=== PATIENT | female | born 1935 | race Caucasian/White ===

== ENCOUNTER 2016-09-11 12:43 | Inpatient (IN) | payer MEDICARE ==
[2016-09-11 13:20] LABS: ABSOLUTE NEUTROPHIL COUNT 5.7 K/mm3 (1.8-7.7); BASO % 0.3 % (0.2-1.0); EOS # 0.1 (0.0-0.5); EOS % 1.1 % (0.9-2.9); HEMATOCRIT 33.4 % (37.0-47.0); HEMOGLOBIN 9.8 gm/l (12.0-16.0); IMM NEUT% 0.5 % (0-1); LYMPH % 12.9 % (15-45); MEAN CELL VOLUME 87.2 fl (81.0-99.0); MEAN CORPUSCULAR HEMOGLOBIN 25.6 pg (27.0-31.0); MEAN CORPUSCULAR HGB CONC 29.3 g/dl (33.0-37.0); MEAN PLATELET VOLUME 10.3 fl (7.4-10.4); MONO # 0.6 (0.0-0.8); MONO % 8.2 % (4-12); PLATELET COUNT 311 K/mm3 (130-400); RED CELL DISTRIBUTION WIDTH 15.7 % (11.5-14.5)
[2016-09-11 13:31] LABS: ALB/GLOB RATIO 1.1 (>1.0); ALBUMIN 3.6 gm/dL (3.5-5.7); CALCIUM 9.1 mg/dL (8.6-10.3)
[2016-09-11 13:32] LABS: SPECIFIC GRAVITY 1.025 (1.001-1.030); URINE BILIRUBIN NEGATIVE (NEGATIVE); URINE BLOOD NEGATIVE (NEGATIVE); URINE GLUCOSE (UA) NEGATIVE (NEGATIVE); URINE LEUKOCYTE ESTERASE 1+ (NEGATIVE); URINE NITRITE POSITIVE (NEGATIVE); URINE PROTEIN TRACE (NEGATIVE); URINE UROBILINOGEN NORMAL (0-1 mg/dl)
[2016-09-11 13:35] LABS: URINE APPEARANCE HAZY; URINE COLOR YELLOW
[2016-09-11] MEDS ORDERED: SODIUM CHLORIDE 0.9% 1,000 ML ONE (13:53)
[2016-09-11] MEDS ORDERED: ONDANSETRON 4 MG/2ML 2 ML VIAL ONE (13:53)
[2016-09-11 13:57] LABS: URINE WBC 50-60 /hpf
[2016-09-11 13:58] LABS: URINE BACTERIA 4+
[2016-09-11] MEDS ORDERED: CEFTRIAXONE 1 GRAM DUPLEX 50 ML IV ONE (14:14)
--- NOTE | 2016-09-11 14:58 | RAD ---
CHEST-AP BEDSIDE HISTORY: Weakness. COMPARISONS: 02/28/2015. FINDINGS: A single view of the chest was performed demonstrating normal appearing soft tissue and bony structures. The heart size is enlarged. There appears to be a large hiatal hernia. Central vascular prominence is observed, mildly increased when compared to the prior exam. No gross consolidation, effusion or pneumothorax is visualized. The hilar and mediastinal structures are intact. IMPRESSION: 1. Cardiomegaly with central vascular congestion, mildly increased from its appearance on prior examination. 2. A large hiatal hernia.
[2016-09-11] MEDS ORDERED: POTASSIUM CHLORIDE 20 MEQ TAB.PRT.SR PO ONE (17:20)
[2016-09-11 17:28] VITALS: BMI 46.3
[2016-09-11] MEDS ORDERED: MENTHOL/CETYLPYRD 1 EACH LOZENGE PO PRN (17:38)
[2016-09-11] MEDS ORDERED: BISACODYL 10 MG SUP PR PRN (17:38)
[2016-09-11] MEDS ORDERED: BLISTEX LIPSTICK 1 EACH TP PRN (17:38)
[2016-09-11] MEDS ORDERED: SODIUM CHLORIDE 0.9% 100 ML IV PRN (17:38)
[2016-09-11] MEDS ORDERED: ACETAMINOPHEN 325 MG TABLET PO PRN (17:38)
[2016-09-11] MEDS ORDERED: BISACODYL 5 MG TABLET.EC PO PRN (17:38)
[2016-09-11] MEDS ORDERED: MAGNESIUM HYDROXIDE 30 ML UDCUP PO PRN (17:38)
[2016-09-11] MEDS ORDERED: CEFTRIAXONE SODIUM 2 G in SODIUM CHLORIDE 0.9% 100 ML IV SCH (17:45)
[2016-09-11] MEDS ORDERED: PUMP TUBING ONE (18:10)
[2016-09-11] MEDS ORDERED: ONDANSETRON 4 MG/2ML 2 ML VIAL IV PRN (18:15)
[2016-09-11] MEDS: SODIUM CHLORIDE 0.9% 1,000 ML IV SCH (18:21)
[2016-09-11] MEDS: PANTOPRAZOLE 40 MG TABLET DR PO SCH (18:25)
[2016-09-11] MEDS ORDERED: FUROSEMIDE 40 MG/4 ML VIAL IV ONE (18:35)
--- NOTE | 2016-09-11 18:41 | HP ---
JESÚS PAZ : 1935 DATE OF ADMISSION: September 11, 2016 CHIEF COMPLAINT: Weakness. HISTORY OF PRESENT ILLNESS: The patient is a 81-year-old female with progressive weakness. She usually uses a cane to help with mobilization but for the past two days she has been bedbound. Her brought her in today because he could no longer take care of her. Per the patient, she woke this morning feeling poorly, sickly. She had nausea and weakness. She denies any cough, chest pain, abdominal pain, vomiting or urinary discomfort. She keeps reiterating she felt poorly. She will converse but she will not open her eyes and maintain eye contact. also reiterated that this weakness has been progressive over the past month but they have not seen their physician. Her past medical history includes chronic anemia secondary to multiple gastrointestinal bleeds. She is being treated by Dr. Green, hematology/oncology, and she gets monthly iron transfusions for this. Her last transfusion was a week ago. She says her weakness did not improve after this transfusion and has progressively worsened since then. REVIEW OF SYSTEMS: GENERAL: No fevers or chills. Weakness, feeling poorly. HEENT: No congestion or throat pain. CARDIOVASCULAR: No chest pain or pressure. RESPIRATORY: No difficulty in breathing, shortness of breath or cough. ABDOMEN: Nausea, no vomiting, diarrhea, abdominal pain. GENITOURINARY: No burning or difficulty with urination. She does have incontinence. NEUROLOGIC: No numbness, tingling. She did have lightheadedness. No headaches. MUSCULOSKELETAL: No muscles aches, pains. Weakness. PAST MEDICAL HISTORY: Includes: 1. Anemia from multiple gastrointestinal bleeds requiring transfusions and IV monthly iron infusions. 2. Obstructive sleep apnea on CPAP. 3. Essential tremor. 4. Diastolic heart failure with an echocardiogram showing ejection fraction of around 70%. 5. Diverticulosis. 6. Hyperlipidemia. 7. Hypothyroidism. 8. Morbid obesity. 9. Hypertension. 10. Atrial fibrillation. 11. Seasonal allergies. 12. Chronic major depression. 13. Conductive hearing loss. 14. Dependent edema. 15. Gastritis. 16. Gluten enteropathy. 17. Hiatal hernia. 18. Hoarding disorder. 19. Primary pulmonary hypertension. MEDICATIONS: Include: 1. Lasix. 2. Restasis. 3. Sertraline. 4. Protonix. 5. Multivitamin. 6. Levothyroxine. 7. Carafate. 8. Oxybutynin. 9. Flonase. 10. Iron sucrose monthly infusions. 11. Diltiazem. ALLERGIES: 1. CODEINE. 2. GLUTEN. 3. TAPE. PAST SURGICAL HISTORY: 1. Multiple colonoscopies and esophagogastroduodenoscopies. 2. Cholecystectomy. 3. Total abdominal hysterectomy. 4. Bladder suspension. 5. Breast biopsy. 6. Elbow surgery. 7. Bilateral total hip arthroplasties. 8. Thyroid radiation. SOCIAL HISTORY: She lives with her . Denies any alcohol, tobacco or drug use. It is noted from EMS that it took six individuals to get her out of the home due to the hoarding activity. FAMILY HISTORY: Mother with colon cancer. PHYSICAL EXAM: VITAL SIGNS: Temperature of 97.6, heart rate of 70, blood pressure 136/54, she is saturating 99% on 3 liters. She denies oxygen use at home. GENERAL: She is alert and oriented. Will converse with you if directly spoken to. Will not open her eyes or look at you. She is not in acute distress. HEENT: Normocephalic, atraumatic. No tenderness to palpation. Mucous membranes moist. Her pupils are equal, round and reactive. Extraocular muscles are intact. There is no scleral icterus or conjunctival injection. NECK: Supple. Trachea midline. CARDIOVASCULAR: Regular, positive S1, S2. She has palpable pulses bilaterally posterior tibial and radially. RESPIRATORY: Clear to auscultation bilaterally. No rhonchi or wheezing. ABDOMEN: Soft, nontender, no rebound, no guarding. MUSCULOSKELETAL: She is moving extremities without difficulty. They are nontender. NEUROLOGIC: She is alert and oriented. PSYCHIATRIC: Flat affect. Does not maintain eye contact. LABORATORIES: Patient's white blood count is 7.5, hemoglobin 9.8, hematocrit 33.4 with a platelet count of 311. Sodium 143, potassium 3.1, chloride 107, carbon dioxide 26, BUN 9, creatinine 0.7, glucose of 107. Urinalysis was obtained. It was yellow and hazy with a trace protein, negative glucose, trace ketones, positive nitrites, 1+ leukocyte esterase, 1 to 2 urine red blood cells, 50 to 60 urine white blood cells, 1 to 3 epithelial cells, and 4+ urine bacteria. DIAGNOSTIC IMAGING: Chest x-ray was obtained and interpreted as cardiomegaly with central vascular congestion mildly increased, large hiatal hernia. ASSESSMENT: A 81-year-old female with progressive weakness and nausea this morning with chronic iron deficiency anemia and found to have a urinary tract infection. PLAN: 1. Urinary tract infection. She received a dose of Rocephin and a liter of IV fluids in the emergency department. We will continue Rocephin and change antibiotics per urine culture results. There is no evidence of sepsis right now without an elevated white count and her vitals are stable. 2. Hypokalemia. We will supplement, replace and monitor. We will check a magnesium. 3. Chronic iron deficiency anemia. Hemoglobin is currently 9.8 which is low. We will monitor and treat as needed. 4. Obstructive sleep apnea. We will have her bring in her CPAP. 5. Allergic rhinitis. Continue Flonase. 6. Atrial fibrillation. We will monitor and continue her home medications. 7. Chronic major depression with hoarding behavior. I believe her depression is poorly treated as noted in recent primary care notes from May. Her medications have been decreased and her current affect on exam is flat without eye contact. She will need close followup. 8. Gluten enteropathy. We will provide a gluten-free diet. 9. Hyperlipidemia. We will continue her home medications and monitor. 10. Hypertension. We will continue her home medications and monitor. 11. Hypothyroidism. We will continue her home medications and monitor. 12. For her chronic diastolic heart failure, she does have some vascular congestion on exam. We will monitor for fluid overload and increase diuresis if necessary. 13. Patient is a FULL CODE. Cc: Edvin Waldron M.D.
[2016-09-11] MEDS ORDERED: FUROSEMIDE 40 MG/4 ML VIAL ONE (21:13)
[2016-09-11] MEDS: DOCUSATE SODIUM 100 MG CAPSULE PO SCH (21:19)
[2016-09-12 05:52] LABS: ABSOLUTE NEUTROPHIL COUNT 4.3 K/mm3 (1.8-7.7); BASO % 0.5 % (0.2-1.0); EOS % 0.2 % (0.9-2.9); HEMATOCRIT 31.6 % (37.0-47.0); HEMOGLOBIN 9.3 gm/l (12.0-16.0); IMM NEUT% 0.3 % (0-1); LYMPH % 17.4 % (15-45); MEAN CELL VOLUME 87.3 fl (81.0-99.0); MEAN CORPUSCULAR HEMOGLOBIN 25.7 pg (27.0-31.0); MEAN CORPUSCULAR HGB CONC 29.4 g/dl (33.0-37.0); MEAN PLATELET VOLUME 9.9 fl (7.4-10.4); MONO # 0.6 (0.0-0.8); MONO % 9.6 % (4-12); PLATELET COUNT 331 K/mm3 (130-400); RED CELL DISTRIBUTION WIDTH 15.7 % (11.5-14.5)
[2016-09-12 06:24] LABS: CALCIUM 10.2 mg/dL (8.6-10.3)
[2016-09-12] MEDS ORDERED: POTASSIUM CHLORIDE 20 MEQ TAB.PRT.SR PO ONE (07:18)
--- NOTE | 2016-09-12 07:33 | PDOC43 ---
- Subjective Chief Complaint: weakness Patient awake with CPAP. She is more conversant and feels improved from yesterday. She is not as weak feeling today Subjective: Reports Pain Tolerable, Reports Tolerating Diet Well, Reports Urinating Without Difficulty, Denies Shortness of Breath, Denies Cough, Denies Chest Pain, Denies Abdominal Pain, Denies Nausea, Denies Vomiting - Objective Vital Signs Temperature 97.7 F 09/12/16 01:35 Pulse Rate 61 09/12/16 01:35 Respiratory Rate 14 09/12/16 05:35 Blood Pressure 127/65 09/12/16 01:35 O2 Saturation by Pulse Oximetry 94 09/12/16 01:35 Oxygen Delivery Method CPAP Oxygen Flow Rate 2 Intake and Output 09/10/16 09/11/16 09/12/16 23:59 23:59 23:59 Intake Total 300 Output Total 1352 Balance -1052 General: Alert, Oriented x3, Cooperative, Other (morbidly obese), No Acute Distress HEENT: Atraumatic, PERRLA, EOMI, Mucous membr. moist/pink Lungs: Clear to Auscultation Bilaterally, Normal Air Movement Cardiovascular: Regular Rate and Rhythm, Normal S1, Normal S2, Other (distant) Abdomen: Soft, Non-Distended, No Rigid, No Tenderness, No Rebounding Extremities: No Cyanosis, No Edema, No Tenderness Peripheral Pulses: Posterior Tibialis (R): 2+, Dorsalis Pedis (L): 2+ Neurological: Normal Speech Psych/Mental Status: Normal Mood Laboratory 09/12/16 05:00 09/12/16 05:00 09/12/16 05:00 RBC 3.62 L MCH 25.7 L MCHC 29.4 L RDW 15.7 H Current Medications: Current meds reviewed in EMR. - Problems: Assessment/Plan (1) UTI (urinary tract infection), bacterial Status: AcuteAssessment/Plan: contributing to weakness (2) Atrial fibrillation Qualifiers: Atrial fibrillation type: paroxysmal Qualifier Code: (I48.0) Paroxysmal atrial fibrillation Status: ChronicAssessment/Plan: stable, not on blood thinners due to recurrent GIB and chronic anemia (3) Chronic diastolic CHF (congestive heart failure) Status: ChronicAssessment/Plan: stable, monitor for fluid overload. She had a slight elevation in BNP upon presentation, received extra dose of lasix. (4) Hypothyroid Qualifiers: Hypothyroidism type: acquired Qualifier Code: (E03.9) Hypothyroidism, unspecified Status: ChronicAssessment/Plan: stable (5) Hypokalemia Status: AcuteAssessment/Plan: may contribute to weakness, replace. She is on diuretics contributing to low levels (6) PATRICIA on CPAP Status: ChronicAssessment/Plan: stable (7) Weakness Status: AcuteAssessment/Plan: multifactorial including chronic disease, poor functional mobility at baseline, anemia and acute infection. Work with PT, OT (8) Obesity, Class III, BMI 40-49.9 (morbid obesity) Status: ChronicAssessment/Plan: complicates medical care (9) Anemia Qualifiers: Anemia type: iron deficiency Iron deficiency anemia type: chronic blood loss Qualifier Code: (D50.0) Iron deficiency anemia secondary to blood loss (chronic) Status: AcuteAssessment/Plan: chronic iron deficiency anemia, receives monthly IV iron infusions. Hgb stable , contributes to weakness
[2016-09-12] MEDS: DILTIAZEM HCL CD 240 MG CAPSULE PO SCH (08:03)
[2016-09-12] MEDS: LEVOTHYROXINE SODIUM 150 MCG TABLET PO SCH (08:03)
[2016-09-12] MEDS: FUROSEMIDE 20 MG TABLET PO SCH (08:04)
[2016-09-12] MEDS: DOCUSATE SODIUM 100 MG CAPSULE PO SCH ×2 (08:04→20:24)
[2016-09-12] MEDS: SERTRALINE HCL 50 MG TABLET PO SCH (08:04)
[2016-09-12] MEDS: OXYBUTYNIN CHLORIDE 5 MG TAB.XL PO SCH (08:06)
--- NOTE | 2016-09-12 10:51 | CT ---
HEAD W/O CON COMPARISON: None HISTORY: Left side drift, arm/leg, tingling in left arm. Cerebrovascular accident. TECHNIQUE: Using a [employer] Aquilion [address] scanner, images were obtained through the head. An automated dose reduction technique was used to minimize patient radiation dose. DOSE INFORMATION: CTDIvol (mGy): 24.10 DLP(mGycm): 442.50 FINDINGS: Mass: None Intracranial Hemorrhage: None Acute Infarction: None Cerebral hemispheres: No change. Mild volume loss. Basal ganglia: Normal Thalami: Normal Brainstem: Normal Cerebellum: Normal Ventricles: Normal Basilar cisterns: Normal Corpus callosum: Normal Pituitary fossa: Normal Middle ears and mastoid air cells: Normal Orbits and sinuses: No acute finding. Bilateral lens replacements. Skull and scalp: Normal Dural sinuses and vessels: Normal IMPRESSION: 1. No acute finding. No intracranial hemorrhage or edema. 2. No change in mild cerebral atrophy. The results were discussed with Matt Sung M.D. 09/12/2016 at 10:47
[2016-09-12 11:10] LABS: ABSOLUTE NEUTROPHIL COUNT 6.9 K/mm3 (1.8-7.7); BASO % 0.3 % (0.2-1.0); EOS # 0.1 (0.0-0.5); EOS % 0.7 % (0.9-2.9); HEMATOCRIT 34.1 % (37.0-47.0); IMM NEUT% 0.3 % (0-1); LYMPH # 1.2 (1.0-4.8); LYMPH % 13.9 % (15-45); MEAN CELL VOLUME 87.7 fl (81.0-99.0); MEAN CORPUSCULAR HEMOGLOBIN 25.7 pg (27.0-31.0); MEAN CORPUSCULAR HGB CONC 29.3 g/dl (33.0-37.0); MEAN PLATELET VOLUME 10.1 fl (7.4-10.4); MONO # 0.7 (0.0-0.8); MONO % 8.2 % (4-12); NEUT % 76.6 % (43-75); PLATELET COUNT 356 K/mm3 (130-400); RED CELL DISTRIBUTION WIDTH 15.9 % (11.5-14.5)
[2016-09-12 11:16] LABS: INR 1.09; PARTIAL THROMBOPLASTIN TIME 24.2 SECONDS (24.5-33.0); PROTHROMBIN TIME 11.6 SECONDS (9.3-11.4)
[2016-09-12 11:18] LABS: ALB/GLOB RATIO 1.1 (>1.0); ALBUMIN 3.5 gm/dL (3.5-5.7); CALCIUM 9.2 mg/dL (8.6-10.3)
[2016-09-12] MEDS ORDERED: ASPIRIN (UNCOATED) 325 MG TABLET PO ONE (12:43)
--- NOTE | 2016-09-12 12:56 | PDOC36 ---
Provider Note Subject: stroke team activated this am at approx 10:30 am due to some mild left sided weakness noted by nursing staff. Note: by the time of stroke team assessment, patient's symptoms had improved. CT of head negative for evidence of stroke. some transient hypoxia noted today, down to 69% but likely due to previously diagnosed sleep apnea and improved with oxygen. Repeat CXR pending, will resume CPAP and consider increased Lasix if CXR shows evidence of fluid overload. Will start daily aspirin.
--- NOTE | 2016-09-12 13:02 | RAD ---
CHEST - 1 VIEW COMPARISON: Portable chest x-ray, 09/11/2016 HISTORY: Worsening hypoxia. FINDINGS: Views: Frontal chest. Lungs: Clear. Heart and vessels: No change. Cardiomegaly. The pulmonary vessels are not engorged. Trachea and bronchi: Normal Mediastinum and stu: No change. Large hiatal hernia. Costophrenic sulci: No change in left, with moderate pleural thickening. Chest wall and bones: Normal Upper abdomen: Normal. IMPRESSION: 1. No acute finding. 2. Pulmonary vessels are not enlarged. 3. No change in large hiatal hernia, cardiomegaly, and lateral left pleural thickening.
--- NOTE | 2016-09-12 14:03 | US ---
DUPLEX SCAN CAROTID BILATERAL COMPARISON: None. HISTORY: Transient ischemic attack symptoms. Frequent headaches and weakness in the left hand. Technique: Grayscale and color Doppler ultrasound examination of the carotid and vertebral artery systems bilaterally. Maximum peak systolic velocity (PSV) / end diastolic velocity (EDV) measurements were obtained. Carotid duplex criteria: Internal carotid artery stenosis is determined using the [place] Symptomatic Carotid Endarterectomy Trial method. FINDINGS: Right Carotid System Velocities (cm/s) Right Common Carotid Artery Proximal/Mid: 115/19 Right Common Carotid Artery Distal: 91/16 Right Bulb: 53/12 Right Internal Carotid Artery Proximal: 69/19 Right Internal Carotid Artery Mid: 71/19 Right Internal Carotid Artery Distal: 97/24 Right External Carotid Artery (RECA): 97 Right Vertebral Artery: 43 cm/s Anterograde with normal waveform Right ICA/CCA: 1.06 Right grayscale and waveform data: Minimal intimal thickening mid to distal common carotid. Minimal plaque in the bulb and proximal external carotid artery. No visible stenosis. Left Carotid System Velocities (cm/s) Left Common Carotid Artery Proximal/Mid: 100/15 Left Common Carotid Artery Distal: 77/15 Left Bulb: 68/11 Left Internal Carotid Artery Proximal: 58/14 Left Internal Carotid Artery Mid: 76/18 Left Internal Carotid Artery Distal: 91/26 Left External Carotid Artery (LECA): 80 Left Vertebral Artery: 57 cm/s Anterograde with normal waveform Left ICA/CCA: 1.17 Left grayscale and waveform data: Minimal intimal thickening of the mid to distal common carotid artery with mild plaque in the bulb and proximal external carotid artery Other findings: None. IMPRESSION: Society of Radiologists in Ultrasound (SRU) consensus statement (Radiology 2003; 229:340-346. DOI 10.1148/radiol.6937171587) was used to estimate internal carotid artery stenosis. Right internal carotid artery: Normal (no stenosis). Left internal carotid artery: Normal (no stenosis). The vertebral arteries: Antegrade flow with normal waveforms bilaterally.
[2016-09-12] MEDS: SODIUM CHLORIDE 0.9% 1,000 ML IV SCH (14:11)
[2016-09-12] MEDS: CEFTRIAXONE 1 GRAM DUPLEX 1 G in Premix (D5W) 50 ml 1 EACH IV SCH (14:51)
[2016-09-12] MEDS: PANTOPRAZOLE 40 MG TABLET DR PO SCH (20:24)
[2016-09-13 06:46] LABS: HEMATOCRIT 33.2 % (37.0-47.0); MEAN CELL VOLUME 86.5 fl (81.0-99.0); MEAN CORPUSCULAR HGB CONC 30.1 g/dl (33.0-37.0); RED CELL DISTRIBUTION WIDTH 16.1 % (11.5-14.5)
[2016-09-13 06:59] LABS: CALCIUM 9.1 mg/dL (8.6-10.3)
[2016-09-13] MEDS: LEVOTHYROXINE SODIUM 150 MCG TABLET PO SCH (07:11)
[2016-09-13] MEDS: DILTIAZEM HCL CD 240 MG CAPSULE PO SCH (08:46)
[2016-09-13] MEDS: SERTRALINE HCL 50 MG TABLET PO SCH (08:47)
[2016-09-13] MEDS: ASPIRIN (ENTERIC COATED) 325 MG TABLET.EC PO SCH (08:47)
[2016-09-13] MEDS: DOCUSATE SODIUM 100 MG CAPSULE PO SCH ×2 (08:47→21:28)
[2016-09-13] MEDS: OXYBUTYNIN CHLORIDE 5 MG TAB.XL PO SCH (08:47)
[2016-09-13] MEDS: FUROSEMIDE 20 MG TABLET PO SCH (08:47)
--- NOTE | 2016-09-13 09:51 | PDOC43 ---
- Subjective Chief Complaint: weakness Patient reports some nausea. No diarrhea, some constipation. Did get to stand with assist today, improved from yesterday, but not to baseline. Variable history elicited between me and PT, regarding numbness being localized (to ulnar distribution with me) to bilat hands for PT. She reports some difficulty using her phone. Speech good, but PT notes processing time seems delayed. reports pt doing better, but still not to her baseline. - Objective Vital Signs Temperature 97.9 F 09/13/16 07:18 Pulse Rate 57 09/13/16 07:18 Respiratory Rate 18 09/13/16 07:18 Blood Pressure 108/50 09/13/16 07:18 O2 Saturation by Pulse Oximetry 92 09/13/16 07:18 Oxygen Delivery Method Room Air Oxygen Flow Rate 0 Vital Signs Last 12 Hours Temp Pulse Resp BP Pulse Ox 09/13/16 07:18 97.9 F 57 18 108/50 92 09/13/16 02:00 16 09/13/16 01:30 98.0 F 51 16 90/43 90 Intake and Output 09/11/16 09/12/16 09/13/16 23:59 23:59 23:59 Intake Total 770 300 Output Total 570 120 Balance 200 180 Intake & Output 09/12/16 09/13/16 09/13/16 23:59 07:59 15:59 Intake Total 770 300 Output Total 570 120 Balance 200 180 Intake: PO Intake 770 300 Output: Void 570 Diaper Void (1gm=1 ml) 120 Other: Number of Voids 1 Unmeasured Stool Amount Large Smear Number of Stools 1 1 General: Alert (but sl slow to answer, sl sleepy.), Cooperative, No Acute Distress Lungs: Clear to Auscultation Bilaterally Cardiovascular: Irregular (rate controlled) Abdomen: Soft, Other (large abdomen, sl metallic bowel sounds noted. No R/G) Extremities: No Edema Skin: Normal Color Neurological: Other (speech sl slower, but generally answers ok.) Laboratory 09/13/16 06:00 09/13/16 06:00 09/13/16 06:00 RBC 3.84 L MCH 26.0 L MCHC 30.1 L RDW 16.1 H Carotid: no significant stenosis, antegrade flow. CXR - no acute finding CT -minor cerebral atrophy, no acute. Current Medications: Current meds reviewed in EMR. Active Medications Acetaminophen (Tylenol) 650 mg PO Q6H PRN PRN Reason: Pain or Temperature > 100.5 F Last Admin: 09/13/16 08:50 Dose: 650 mg Aspirin (Ecotrin) 325 mg PO DAILY [facility] Last Admin: 09/13/16 08:47 Dose: 325 mg Benzocaine/Menthol (Cepacol) 1 each PO PRN PRN PRN Reason: Sore Throat Bisacodyl (Dulcolax) [address] DAILY PRN PRN Reason: Constipation Bisacodyl (Dulcolax) 5 mg PO DAILY PRN PRN Reason: Constipation Diltiazem HCl (Cardizem Cd) 240 mg PO DAILY [facility] Last Admin: 09/13/16 08:46 Dose: 240 mg Docusate Sodium (Colace) 100 mg PO BID [facility] Last Admin: 09/13/16 08:47 Dose: 100 mg Furosemide (Lasix) 20 mg PO QAM [facility] Last Admin: 09/13/16 08:47 Dose: 20 mg Sodium Chloride (Sodium Chloride 0.9%) 100 mls @ 25 mls/hr IV PRN PRN PRN Reason: Flush Ceftriaxone Sodium/Dextrose 1 (g/ Premix (D5W) 50 ml) 50 mls @ 100 mls/hr IV Q24H [facility] Last Admin: 09/12/16 14:51 Dose: 100 mls/hr Levothyroxine Sodium (Levothroid) 150 mcg PO QAMAC [facility] Last Admin: 09/13/16 07:11 Dose: 150 mcg Magnesium Hydroxide (Milk Of Magnesia) 30 ml PO DAILY PRN PRN Reason: Constipation Ondansetron HCl (Zofran) 4 mg IV Q6H PRN PRN Reason: Nausea/Vomiting Last Admin: 09/11/16 18:23 Dose: 4 mg Oxybutynin Chloride (Ditropan Xl) 5 mg PO DAILY [facility] Last Admin: 09/13/16 08:47 Dose: 5 mg Pantoprazole Sodium (Protonix) 40 mg PO Q24H [facility] Last Admin: 09/12/16 20:24 Dose: 40 mg Petrolatum/Paraffin/Mineral Oil (Blistex) 1 each TP PRN PRN PRN Reason: Dry and/or chapped lips Sertraline HCl (Zoloft) 50 mg PO DAILY [facility] Last Admin: 09/13/16 08:47 Dose: 50 mg Sodium Chloride (Normal Saline 10ml Flush) 10 - 50 ml IV PRN PRN PRN Reason: IV Flush Last Admin: 09/11/16 21:22 Dose: 10 ml Sodium Chloride (Normal Saline 10ml Flush) 10 ml IV Q8HR [facility] Last Admin: 09/13/16 08:46 Dose: 10 ml - Problems: Assessment/Plan (1) Anemia Qualifiers: Anemia type: iron deficiency Iron deficiency anemia type: chronic blood loss Qualifier Code: (D50.0) Iron deficiency anemia secondary to blood loss (chronic) Status: AcuteAssessment/Plan: chronic iron deficiency anemia, receives monthly IV iron infusions. Hgb stable , contributes to weakness. Etiology chronic GI bleed vs blood loss from gluten enteropathy Patient has had evaluation by Ro. Last CT 2014; will consider recheck. (2) UTI (urinary tract infection), bacterial Status: AcuteAssessment/Plan: contributing to weakness, Citrobacter identified in urine cx. Blood cx neg. On Rocephin. Check CT of abd, would eval for renal complications (3) Weakness Status: AcuteAssessment/Plan: multifactorial including chronic disease including cerebrovascular dz/atrial fib , poor functional mobility at baseline, anemia and acute infection. Appreciate work with PT, OT; considering for SNF L sided weakness yesterday seems to have resolved. Pt with normal carotids, no acute change on CXR, CT head. (4) Chronic diastolic CHF (congestive heart failure) Status: ChronicAssessment/Plan: stable, monitor for fluid overload. Slight elevation in BNP (121) upon presentation, received extra dose of lasix. On Cpap for sleep apnea. (5) Obesity, Class III, BMI 40-49.9 (morbid obesity) Status: ChronicAssessment/Plan: complicates medical care. (6) Atrial fibrillation Qualifiers: Atrial fibrillation type: paroxysmal Qualifier Code: (I48.0) Paroxysmal atrial fibrillation Status: ChronicAssessment/Plan: stable, not on blood thinners due to recurrent GIB and chronic anemia. rate is controlled. (7) Gluten enteropathy Status: ChronicAssessment/Plan: May be contributing to weakness and low iron. Planning IV MVI, IV Venofer, and dietitian consult regarding other care. Previous documentation of elevated PTH, normal calcium, low Vit D - recheck Vit D. (8) PATRICIA on CPAP Status: ChronicAssessment/Plan: stable, continue VTE Prophylaxis: mechanical tx, not on enoxaparin due to concern for anemia. Disposition: To be determined, hope to see improvement in activity tolerance. SNF being considered.
[2016-09-13] MEDS ORDERED: SODIUM CHLORIDE 0.9% FLUSH 10 ML ONE (10:25)
[2016-09-13] MEDS ORDERED: IV START KIT ONE (10:25)
[2016-09-13] MEDS ORDERED: IRON SUCROSE COMPLEX 200 MG in SODIUM CHLORIDE 0.9% 100 ML IV ONE (10:30)
[2016-09-13] MEDS ORDERED: MULTIVITAMINS 10 ML in SODIUM CHLORIDE 0.9% 1,000 ML IV SCH (11:00)
[2016-09-13] MEDS ORDERED: PUMP TUBING ONE (13:48)
--- NOTE | 2016-09-13 14:12 | CT ---
ABD/PELVIS W/ CON COMPARISON: CT abdomen and pelvis with contrast, 03/17/2015 HISTORY: Urinary tract infection, weakness, and gluten enteropathy. Technique: Oral contrast was administered. Intravenous injection 100 mL Isovue 370. Using a [employer] Aquilion [address] scanner, images were obtained from the diaphragm to the floor the pelvis. An automated dose reduction technique was used to minimize patient radiation dose. Dose information: CTDIvol (mGy): 44.40 DLP(mGycm): 2239.30 FINDINGS: Lung bases: Normal lung bases. Minimal medial left lower lobe effusion. Inferior mediastinum and heart: Normal heart. Intrathoracic stomach. Liver: Normal. Gallbladder: Removed. Bile ducts: Normal. Pancreas: Atrophy. Spleen: Normal. Adrenal glands: Normal. Kidneys: Normal enhancement. No evidence of infection. Simple cysts in the lower pole of the left kidney. No calcification or hydronephrosis. Ureters: Normal Urinary bladder: Incompletely visible because of streak artifact from adjacent bilateral hip replacements. Uterus and adnexa: Hysterectomy Blood vessels: Atherosclerosis of the abdominal aorta. No aneurysm. Lymph nodes: Normal Stomach: Intrathoracic. Duodenum: Normal Small intestine: Normal Appendix: Normal Colon: Diverticulosis of the sigmoid and the descending colon. No diverticulitis. Abdominal wall and supporting musculature: Normal Bones: Satisfactory appearance of bilateral total hip arthroplasties. L1 mild retrolisthesis. Lower thoracic-upper lumbar spine moderate spondylosis. L4-5 and L5-S1 moderate facet osteoarthritis. IMPRESSION: 1. There is no CT evidence of pyelonephritis or hydronephrosis. Incidentally noted pair of small simple cysts in the lower pole left kidney. 2. Incidental findings include intrathoracic stomach with some minimal medial left lower lobe pleural effusion, cholecystectomy, atrophy of the pancreas, hysterectomy, atherosclerosis, bilateral hip replacements, and diverticulosis of the descending and sigmoid colon. 3. Spinal degenerative changes. Results discussed with Amado Denney III, MD 09/13/2016 at 14:09
[2016-09-13] MEDS: CEFTRIAXONE 1 GRAM DUPLEX 1 G in Premix (D5W) 50 ml 1 EACH IV SCH (14:21)
[2016-09-13] MEDS: PANTOPRAZOLE 40 MG TABLET DR PO SCH (17:56)
[2016-09-13] MEDS: CLOTRIMAZOLE 1% 15 APPLIC/15 G CREAM TP SCH (21:32)
[2016-09-14 06:09] LABS: ABSOLUTE NEUTROPHIL COUNT 3.6 K/mm3 (1.8-7.7); BASO % 0.7 % (0.2-1.0); EOS # 0.3 (0.0-0.5); EOS % 4.6 % (0.9-2.9); HEMATOCRIT 31.8 % (37.0-47.0); HEMOGLOBIN 9.3 gm/l (12.0-16.0); IMM NEUT% 0.2 % (0-1); LYMPH # 1.4 (1.0-4.8); LYMPH % 23.2 % (15-45); MEAN CELL VOLUME 85.9 fl (81.0-99.0); MEAN CORPUSCULAR HEMOGLOBIN 25.1 pg (27.0-31.0); MEAN CORPUSCULAR HGB CONC 29.2 g/dl (33.0-37.0); MEAN PLATELET VOLUME 10.3 fl (7.4-10.4); MONO # 0.6 (0.0-0.8); MONO % 9.4 % (4-12); NEUT % 61.9 % (43-75); PLATELET COUNT 346 K/mm3 (130-400); RED CELL DISTRIBUTION WIDTH 16.1 % (11.5-14.5)
[2016-09-14] MEDS: LEVOTHYROXINE SODIUM 150 MCG TABLET PO SCH (07:20)
--- NOTE | 2016-09-14 07:58 | PDOC43 ---
- Subjective Chief Complaint: weakness Spoke with Dr Escobar yesterday, she reports that patient's baseline is alert and mentally very capable. Patient reports she is feeling a little better today, but still can't figure how to check text messages on her phone, and hasn't felt like reading on her tablet (as she would normally do). Breathing ok, no GI c/o, no urinary c/o. Did fatigue easily with activity yesterday. - Objective Vital Signs Temperature 98.3 F 09/14/16 01:05 Pulse Rate 54 09/14/16 01:05 Respiratory Rate 20 09/14/16 01:05 Blood Pressure 118/63 09/14/16 01:05 O2 Saturation by Pulse Oximetry 98 09/14/16 01:05 Oxygen Delivery Method CPAP Oxygen Flow Rate 3 Intake and Output 09/12/16 09/13/16 09/14/16 23:59 23:59 23:59 Intake Total 770 1245 200 Output Total 570 1096 587 Balance 200 149 -387 General: Alert (A little more conversant today, but doesn't appear to be), Cooperative, No Acute Distress Lungs: Clear to Auscultation Bilaterally, Normal Air Movement Cardiovascular: Regular Rate and Rhythm (distant) Abdomen: Soft, Normal Bowel Sounds, Non-Distended, No Tenderness, No Rebounding , No Involuntary Guarding Extremities: Other (No significant pitting edema bilat.) Skin: Normal Color Neurological: Normal Speech (mostly normal, faster than yesterday, but not quite to what I might expect for baseline based on Dr Escobar's report.) Laboratory 09/14/16 05:30 09/14/16 05:30 RBC 3.70 L MCH 25.1 L MCHC 29.2 L RDW 16.1 H Current Medications: Current meds reviewed in EMR. Active Medications Acetaminophen (Tylenol) 650 mg PO Q6H PRN PRN Reason: Pain or Temperature > 100.5 F Last Admin: 09/13/16 08:50 Dose: 650 mg Aspirin (Ecotrin) 325 mg PO DAILY [facility] Last Admin: 09/13/16 08:47 Dose: 325 mg Benzocaine/Menthol (Cepacol) 1 each PO PRN PRN PRN Reason: Sore Throat Bisacodyl (Dulcolax) 10 mg [place] DAILY PRN PRN Reason: Constipation Bisacodyl (Dulcolax) 5 mg PO DAILY PRN PRN Reason: Constipation Clotrimazole (Lotrimin) 1 applic TP BID [facility] Last Admin: 09/13/16 21:32 Dose: 1 applic Diltiazem HCl (Cardizem Cd) 240 mg PO DAILY [facility] Last Admin: 09/13/16 08:46 Dose: 240 mg Docusate Sodium (Colace) 100 mg PO BID [facility] Last Admin: 09/13/16 21:28 Dose: 100 mg Furosemide (Lasix) 20 mg PO QAM [facility] Last Admin: 09/13/16 08:47 Dose: 20 mg Sodium Chloride (Sodium Chloride 0.9%) 100 mls @ 25 mls/hr IV PRN PRN PRN Reason: Flush Last Admin: 09/13/16 14:21 Dose: 25 mls/hr Ceftriaxone Sodium/Dextrose 1 (g/ Premix (D5W) 50 ml) 50 mls @ 100 mls/hr IV Q24H [facility] Last Admin: 09/13/16 14:21 Dose: 100 mls/hr Multivitamins/Minerals 10 ml/ (Sodium Chloride) 1,010 mls @ 42 mls/hr IV Q24H [facility] Last Admin: 09/13/16 13:45 Dose: 42 mls/hr Levothyroxine Sodium (Levothroid) 150 mcg PO QAMAC [facility] Last Admin: 09/14/16 07:20 Dose: 150 mcg Magnesium Hydroxide (Milk Of Magnesia) 30 ml PO DAILY PRN PRN Reason: Constipation Ondansetron HCl (Zofran) 4 mg IV Q6H PRN PRN Reason: Nausea/Vomiting Last Admin: 09/11/16 18:23 Dose: 4 mg Oxybutynin Chloride (Ditropan Xl) 5 mg PO DAILY [facility] Last Admin: 09/13/16 08:47 Dose: 5 mg Pantoprazole Sodium (Protonix) 40 mg PO Q24H [facility] Last Admin: 09/13/16 17:56 Dose: 40 mg Petrolatum/Paraffin/Mineral Oil (Blistex) 1 each TP PRN PRN PRN Reason: Dry and/or chapped lips Sertraline HCl (Zoloft) 50 mg PO DAILY [facility] Last Admin: 09/13/16 08:47 Dose: 50 mg Sodium Chloride (Normal Saline 10ml Flush) 10 - 50 ml IV PRN PRN PRN Reason: IV Flush Last Admin: 09/13/16 13:48 Dose: 10 ml Sodium Chloride (Normal Saline 10ml Flush) 10 ml IV Q8HR [facility] Last Admin: 09/14/16 01:15 Dose: 10 ml - Problems: Assessment/Plan (1) Weakness Status: AcuteAssessment/Plan: With some degree of mild altered mental status, word finding difficulty reported. Multifactorial including chronic disease including cerebrovascular dz/atrial fib , poor functional mobility at baseline, anemia and acute infection. Appreciate work with PT, OT; considering for SNF 09/15 L sided weakness yesterday seems to have resolved. Pt with normal carotids, no acute change on CXR, CT head. Would consider for anticoagulation, but long hx of anemia, iron deficiency makes this nonoptimal. 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 Hgb stable , contributes to weakness. Etiology chronic GI bleed vs blood loss from gluten enteropathy Patient has had evaluation by Ro. CT did not suggest any new pathology. 200 mg Venofer given yesterday. (3) UTI (urinary tract infection), bacterial Status: AcuteAssessment/Plan: Citrobacter freundii, sensitive to Rocephin, TMP/SMX contributing to weakness, Blood cx neg. On Rocephin, plan to switch to TMP/SMX. CT of abd did not show any renal complications (4) Chronic diastolic CHF (congestive heart failure) Status: ChronicAssessment/Plan: stable, monitor for fluid overload. Slight elevation in BNP (121) upon presentation, received extra dose of lasix. On Cpap for sleep apnea. (5) Obesity, Class III, BMI 40-49.9 (morbid obesity) Status: ChronicAssessment/Plan: complicates medical care. (6) Atrial fibrillation Qualifiers: Atrial fibrillation type: paroxysmal Qualifier Code: (I48.0) Paroxysmal atrial fibrillation Status: ChronicAssessment/Plan: stable, not on blood thinners due to recurrent GIB and chronic anemia. rate is controlled. (7) Gluten enteropathy Status: ChronicAssessment/Plan: May be contributing to weakness and low iron, although the one biopsy did not confirm dx. Appreciate dietitian consult. Previous documentation of elevated PTH, normal calcium, low Vit D - recheck Vit D was good (she is on supplement). Continue gluten free diet, MVI (8) PATRICIA on CPAP Status: ChronicAssessment/Plan: stable, continue VTE Prophylaxis: mechanical tx, not on enoxaparin due to concern for anemia. Disposition: SNF being considered for 09/15. Additional Comments: BMI 46= morbid obesity, affecting care.
[2016-09-14] MEDS: CLOTRIMAZOLE 1% 15 APPLIC/15 G CREAM TP SCH ×2 (08:30→21:27)
[2016-09-14] MEDS: MULTIVIT W/ MINERALS 1 TAB TABLET PO SCH (08:31)
[2016-09-14] MEDS: DOCUSATE SODIUM 100 MG CAPSULE PO SCH ×2 (08:32→21:27)
[2016-09-14] MEDS: ASPIRIN (ENTERIC COATED) 325 MG TABLET.EC PO SCH (08:32)
[2016-09-14] MEDS: OXYBUTYNIN CHLORIDE 5 MG TAB.XL PO SCH (08:32)
[2016-09-14] MEDS: DILTIAZEM HCL CD 240 MG CAPSULE PO SCH (08:32)
[2016-09-14] MEDS: FUROSEMIDE 20 MG TABLET PO SCH (08:32)
[2016-09-14] MEDS: SULFAMETHOXAZOLE 800 MG/TRIMETHOPRIM 160 MG TABLET PO SCH ×2 (08:59→21:26)
[2016-09-14] MEDS: SERTRALINE HCL 50 MG TABLET PO SCH (09:06)
[2016-09-14 11:51] LABS: ALB/GLOB RATIO 1.1 (>1.0); ALBUMIN 3.1 gm/dL (3.5-5.7); CALCIUM 8.7 mg/dL (8.6-10.3)
[2016-09-14] MEDS: PANTOPRAZOLE 40 MG TABLET DR PO SCH (17:56)
[2016-09-15] MEDS: LEVOTHYROXINE SODIUM 150 MCG TABLET PO SCH (07:15)
[2016-09-15 08:03] VITALS: BP 110/56
[2016-09-15] MEDS: ASPIRIN (ENTERIC COATED) 325 MG TABLET.EC PO SCH (09:02)
[2016-09-15] MEDS: SERTRALINE HCL 50 MG TABLET PO SCH (09:02)
[2016-09-15] MEDS: OXYBUTYNIN CHLORIDE 5 MG TAB.XL PO SCH (09:02)
[2016-09-15] MEDS: DILTIAZEM HCL CD 240 MG CAPSULE PO SCH (09:02)
[2016-09-15] MEDS: CLOTRIMAZOLE 1% 15 APPLIC/15 G CREAM TP SCH (09:03)
[2016-09-15] MEDS: FUROSEMIDE 20 MG TABLET PO SCH (09:03)
[2016-09-15] MEDS: MULTIVIT W/ MINERALS 1 TAB TABLET PO SCH (09:03)
[2016-09-15] MEDS: DOCUSATE SODIUM 100 MG CAPSULE PO SCH (09:03)
[2016-09-15] MEDS: SULFAMETHOXAZOLE 800 MG/TRIMETHOPRIM 160 MG TABLET PO SCH (09:05)
[2016-09-15] MEDS ORDERED: FLUTICASONE PROPIONATE 50 MCG/SPRAY 120 SPRAYS/16 G INH NS SCH (10:30)
--- NOTE | 2016-09-15 10:44 | PDOC43 ---
- Subjective Chief Complaint: weakness Patient reports feeling better. Still having difficulty using phone, and therapy had noted difficulty with a suspected hemineglect. Ate ok, Stood and walked a few steps, used commode. Ate ok, had a good BM. EKG from the 8th was reviewed, did show Q wave anteriorly. - Objective Vital Signs Temperature 98.2 F 09/15/16 08:02 Pulse Rate 50 09/15/16 08:02 Respiratory Rate 18 09/15/16 08:02 Blood Pressure 110/56 09/15/16 08:02 O2 Saturation by Pulse Oximetry 92 09/15/16 08:02 Oxygen Delivery Method CPAP Oxygen Flow Rate 3 Vital Signs Last 12 Hours Temp Pulse Resp BP Pulse Ox 09/15/16 08:02 98.2 F 50 18 110/56 92 09/15/16 08:00 18 09/15/16 02:15 18 09/15/16 01:24 98.6 F 65 18 104/56 99 Intake and Output 09/13/16 09/14/16 09/15/16 23:59 23:59 23:59 Intake Total 8631 807 7203 Output Total 1096 1421 361 Balance 149 -621 769 Intake & Output 09/14/16 09/15/16 09/15/16 23:59 07:59 15:59 Intake Total 600 1130 Output Total 834 361 Balance -234 769 Intake: PO Intake 600 1130 Output: Diaper Void (1gm=1 ml) 832 361 Number of Void Diapers 2 General: Alert, Cooperative, No Acute Distress Lungs: Clear to Auscultation Bilaterally, Normal Air Movement Cardiovascular: Regular Rate and Rhythm Abdomen: Soft, Normal Bowel Sounds, Non-Distended Extremities: No Edema, No Tenderness Neurological: Normal Speech Psych/Mental Status: Other (appears a little brighter, but still notes difficulty using her phone.) Laboratory 09/14/16 05:30 09/14/16 05:30 09/14/16 05:30 Total Protein 6.0 L Albumin 3.1 L Current Medications: Current meds reviewed in EMR. Active Medications Acetaminophen (Tylenol) 650 mg PO Q6H PRN PRN Reason: Pain or Temperature > 100.5 F Last Admin: 09/13/16 08:50 Dose: 650 mg Aspirin (Ecotrin) 325 mg PO DAILY [facility] Last Admin: 09/15/16 09:02 Dose: 325 mg Benzocaine/Menthol (Cepacol) 1 each PO PRN PRN PRN Reason: Sore Throat Bisacodyl (Dulcolax) 10 mg [place] DAILY PRN PRN Reason: Constipation Bisacodyl (Dulcolax) 5 mg PO DAILY PRN PRN Reason: Constipation Clotrimazole (Lotrimin) 1 applic TP BID [facility] Last Admin: 09/15/16 09:03 Dose: 1 applic Diltiazem HCl (Cardizem Cd) 240 mg PO DAILY [facility] Last Admin: 09/15/16 09:02 Dose: 240 mg Docusate Sodium (Colace) 100 mg PO BID [facility] Last Admin: 09/15/16 09:03 Dose: 100 mg Furosemide (Lasix) 20 mg PO QAM [facility] Last Admin: 09/15/16 09:03 Dose: 20 mg Sodium Chloride (Sodium Chloride 0.9%) 100 mls @ 25 mls/hr IV PRN PRN PRN Reason: Flush Last Admin: 09/13/16 14:21 Dose: 25 mls/hr Levothyroxine Sodium (Levothroid) 150 mcg PO QAMAC [facility] Last Admin: 09/15/16 07:15 Dose: 150 mcg Magnesium Hydroxide (Milk Of Magnesia) 30 ml PO DAILY PRN PRN Reason: Constipation Multivitamins/Minerals (Theragran-M) 1 tab PO DAILY [facility] Last Admin: 09/15/16 09:03 Dose: 1 tab Oxybutynin Chloride (Ditropan Xl) 5 mg PO DAILY [facility] Last Admin: 09/15/16 09:02 Dose: 5 mg Pantoprazole Sodium (Protonix) 40 mg PO Q24H [facility] Last Admin: 09/14/16 17:56 Dose: 40 mg Petrolatum/Paraffin/Mineral Oil (Blistex) 1 each TP PRN PRN PRN Reason: Dry and/or chapped lips Sertraline HCl (Zoloft) 50 mg PO DAILY [facility] Last Admin: 09/15/16 09:02 Dose: 50 mg Sodium Chloride (Normal Saline 10ml Flush) 10 - 50 ml IV PRN PRN PRN Reason: IV Flush Last Admin: 09/14/16 08:31 Dose: 10 ml Sodium Chloride (Normal Saline 10ml Flush) 10 ml IV Q8HR [facility] Last Admin: 03/11/17 09:02 Dose: 10 ml Trimethoprim/Sulfamethoxazole (Septra Ds) 1 each PO BID [facility] Last Admin: 09/15/16 09:05 Dose: 1 each - Problems: Assessment/Plan (1) Weakness Status: AcuteAssessment/Plan: With some degree of mild altered mental status, word finding difficulty reported. Suspect cerebrovascular disease (stroke) as cause. No marked abnormality on initial CT, but suspect CVA. Multifactorial including chronic disease including cerebrovascular dz/atrial fib , poor functional mobility at baseline, anemia and acute infection. Appreciate work with PT, OT; plan SNF 09/15 L sided weakness yesterday seems to have resolved. Pt with normal carotids, no acute change on CXR, CT head. Would consider for anticoagulation, but long hx of anemia, iron deficiency makes this nonoptimal. 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 Hgb stable , contributes to weakness. Etiology chronic GI bleed vs blood loss from gluten enteropathy Patient has had evaluation by Ro. CT did not suggest any new pathology. 200 mg Venofer given (3) UTI (urinary tract infection), bacterial Status: AcuteAssessment/Plan: Citrobacter freundii, sensitive to Rocephin, TMP/SMX contributing to weakness, Blood cx neg (except a contaminant). intially tx with Rocephin, switched to TMP/SMX. CT of abd did not show any renal complications (4) Chronic diastolic CHF (congestive heart failure) Status: ChronicAssessment/Plan: stable, Slight elevation in BNP (121) upon presentation, received extra dose of lasix. On Cpap for sleep apnea. (5) Obesity, Class III, BMI 40-49.9 (morbid obesity) Status: ChronicAssessment/Plan: complicates medical care. (6) Atrial fibrillation Qualifiers: Atrial fibrillation type: paroxysmal Qualifier Code: (I48.0) Paroxysmal atrial fibrillation Status: ChronicAssessment/Plan: stable, not on blood thinners due to recurrent GIB and chronic anemia. rate is controlled. Is on aspirin as compromise for suspected stroke (7) Gluten enteropathy Status: ChronicAssessment/Plan: May be contributing to weakness and low iron, although the one biopsy did not confirm dx. Appreciate dietitian consult. Previous documentation of elevated PTH, normal calcium, low Vit D - recheck Vit D was good (she is on supplement). Continue gluten free diet, MVI (8) PATRICIA on CPAP Status: ChronicAssessment/Plan: stable, continue VTE Prophylaxis: mechanical tx, not on enoxaparin due to concern for anemia. Disposition: SNF being considered for 09/15. Additional Comments: BMI 46= morbid obesity, affecting care. Positive blood culture appears to be a contaminant, showing Coag-neg Staph.
[2016-09-15 11:59] LABS: TROPONIN I 0.35 ng/ml (0.0-0.06)
--- NOTE | 2016-09-15 16:03 | DS ---
JESÚS PAZ [id number] DATE OF ADMISSION: September 12, 2016 DATE OF DISCHARGE: September 15, 2016 DISCHARGE DIAGNOSES: Are: 1. Weak due to suspected stroke. 2. Chronic iron deficiency anemia attributed to ongoing occult gastrointestinal bleeding. 3. Obstructive sleep apnea on CPAP. 4. Essential tremor. 5. History of diastolic heart failure with ejection fraction preserved. 6. Elevated troponin of uncertain significance. 7. Morbid obesity. 8. Hyperlipidemia. 9. Hypothyroidism. 10. History of atrial fibrillation with good rate control but not anticoagulated due to bleeding risks. 11. Subjective report of gluten enteropathy. 12. Primary pulmonary hypertension. 13. Reported hoarding disorder. 14. Urinary tract infection with Citrobacter freundii. REASON FOR ADMISSION: The patient is a 81-year-old female with progressive weakness. She normally uses a cane to help with mobilization but the previous two days she has been bedbound. She was brought in because her could no longer take care of her, and she had woken up feeling poorly and sickly with nausea. She also describes having difficulty operating things such as her phone which was previously handled well. She, on admission, had a CT of the head which showed mild cerebral atrophy but no acute findings without intracranial hemorrhage or edema. She had a chest x-ray showing cardiomegaly, showing central vascular congestion, mildly increased and a large hiatal hernia. Her admission labs showed a white blood cell count of 7.5, hemoglobin 9.8, platelets 311. Her INR 1.09. Chemistry profile, sodium 143, potassium slightly low at 3.1. BUN 9, creatinine 0.7, glucose 107, calcium 9.1, magnesium 1.9. Liver enzymes normal. BNP of 121. Her urinalysis showed 50 to 60 white blood cells, 1 to 2 red cells, 4+ bacteria, and culture ultimately showed Citrobacter freundii susceptible to ceftriaxone and also susceptible to Bactrim. She had an electrocardiogram with some nonspecific changes including some anterior Q waves suspected, but troponins were only checked retrospectively on September 15, 2016 using the blood from September 12, 2016 showing a modest elevation of troponin at 0.35 but with normal CK and normal CK-MB. HOSPITAL COURSE: The patient developed some left-sided weakness during hospitalization and had repeat stroke evaluation and subsequently carotid Doppler imaging. Her carotid Dopplers did not show any significant stenosis and had antegrade flow bilaterally. Her chest x-ray showed no change in hiatal hernia or cardiomegaly or lateral left pleural thickening. Because of her remarkable weakness without focal deficits, CT of the abdomen and pelvis was done showing no CT evidence of pyelonephritis or hydronephrosis, small simple cyst on the lower pole left kidney, incidental findings including intrathoracic stomach with minimal medial left lower lobe pleural effusion, cholecystectomy, atrophy of pancreas, hysterectomy, atherosclerosis, bilateral hip replacements and diverticulosis and spinal degenerative changes. Patient was started on aspirin as a compromise because of her recurrent gastrointestinal bleed and requirement for iron supplementation. She had physical therapy and occupational therapy and made slow improvement in alertness and function but still, even as of September 14, 2016, demonstrated some left-sided neglect and had difficulty operating her phone. Her rate of speech and eye contact improved, and she otherwise appeared to be stronger and was able to stand and transfer. Her lab remained stable with a hemoglobin of about 9.8 on admission and 9.3 on the day before discharge. Her chemistry profile remained stable. Sodium 140, potassium 4.3, BUN 10, creatinine 0.8, glucose 86, calcium 8.7. Patient had a vitamin D level done because she had previously had a markedly low one, but it was 47 during this hospitalization. Patient had blood cultures done one of which returned positive but showing coag negative staphylococcus and was felt to be a contaminant. DISPOSITION: Patient is anticipated to be discharged to long term facility, [facility]. DISCHARGE MEDICATIONS: So she will be going home on: 1. Aspirin 325 mg daily. 2. Clotrimazole under breast twice daily. 3. Cyclosporin to eyes twice daily. 4. Diltiazem 240 mg orally daily. 5. Flonase nasal spray one spray each nostril daily. 6. Lasix 20 mg orally daily in the morning. 7. Levothyroxine 150 mcg orally daily. 8. Multivitamin one orally daily. 9. Oxybutynin XL 5 mg orally daily. 10. Pantoprazole 40 mg orally twice daily. 11. Sertraline 50 mg orally daily. 12. Sucralfate 1 g orally three times daily. 13. Bactrim DS one orally twice daily times seven more days. RECOMMENDATIONS: In followup discussion with Dr. Workman, the troponin indicated that particularly since she would not be a candidate for further anticoagulation, simple treatment with aspirin and control of heart rate would be most appropriate. He does indicate that perhaps another consideration for anticoagulation might be an option given her risk for further strokes due to atrial fibrillation. FOLLOW UP: Followup will be with Dr. Escobar. DISCHARGE DIET: No particular restrictions at this time. DISCHARGE ACTIVITY: Will be as tolerated. She has limited activity tolerance and balance. A front wheeled walker for activity and mobility. Cc: Jolene Escobar M.D. Nichol Workman M.D. Matt Green M.D.
== END 2016-09-15 13:03 | DRG 690 ==
LOC: ED 12:43 → MS 16:01 → OBSVTOIN 09-12 12:51
PROVIDERS: ADMIT Family Medicine; ATTEND Family Medicine
DX: N39.0 Urinary tract infection, site not specified (principal); I50.32 Chronic diastolic (congestive) heart failure; Z68.42 Body mass index [BMI] 45.0-49.9, adult; D50.8 Other iron deficiency anemias; B96.89 Other specified bacterial agents as the cause of diseases classified elsewhere; E66.01 Morbid (severe) obesity due to excess calories; I48.0 Paroxysmal atrial fibrillation; G47.33 Obstructive sleep apnea (adult) (pediatric); K90.0 Celiac disease